=== PATIENT | male | born 1970 | race Caucasian/White ===

== ENCOUNTER → 2021-12-06 16:00 | Outpatient (CLI) | payer BC, SELFPAY ==
[2021-12-06 19:41] LABS: Prostate Specific Ag Screen 6.3 ng/ml (0.0-4.0)
== END ==
PROVIDERS: Visit Provider Family Medicine
DX: Z12.5 Encounter for screening for malignant neoplasm of prostate (principal)
CPT/HCPCS: G0103

== ENCOUNTER → 2022-01-12 15:52 | Outpatient (CLI) | payer BC, SELFPAY ==
[2022-01-14 08:14] LABS: PSA, Free 4.26 ng/mL; Prostate Specific Ag 13.3 ng/mL (0.0-4.0)
== END ==
PROVIDERS: PCP Family Medicine; Visit Provider Urology
DX: R97.20 Elevated prostate specific antigen [PSA] (principal)
CPT/HCPCS: 36415; 84153; 84154

== ENCOUNTER → 2022-01-16 06:58 | Outpatient (CLI) | payer BC, SELFPAY | PROVIDERS: PCP Family Medicine; Visit Provider Internal Medicine Gastroenterology | DX: Z01.812 Encounter for preprocedural laboratory examination (principal); Z20.822 Contact with and (suspected) exposure to COVID-19 | CPT/HCPCS: C9803; U0003; U0005 ==

== ENCOUNTER → 2022-03-06 07:10 | Outpatient (CLI) | payer BC, SELFPAY | PROVIDERS: PCP Family Medicine; Visit Provider Internal Medicine | DX: Z01.812 Encounter for preprocedural laboratory examination (principal); Z20.822 Contact with and (suspected) exposure to COVID-19; Z12.11 Encounter for screening for malignant neoplasm of colon | CPT/HCPCS: C9803; U0003; U0005 ==

== ENCOUNTER 2022-03-08 08:22 | Day surgery (SDC) | payer BC, SELFPAY ==
[2022-03-02 14:10] VITALS: BMI 36.9
[2022-03-08] VITALS (7 sets, daily range): BP systolic 100–142; BP diastolic 68–81; PULSE 63–84; RESP 18; TEMP 36.6–36.8; O2SAT 90–97
--- NOTE | 2022-03-08 09:25 | P.PN_ITS ---
[facility] Anesthesia Checklist - Patient Identification Patient Identification: Arm Band - Structural Data Admitted From: Home Planned Operative Procedure/s: Colonoscopy Consent for Planned Operative Procedure(s) Verified: Yes - NPO Status Verified Time NPO: 04:30 (Prep) - Airway Assessment C-Spine Mobility Assessed: Yes TMJ Mobility Assessed: Yes Dentition: Poor Dentition - Neurological Assessment Level of Consciousness: Awake Hx Seizures: No Numbness or tingling in extremities: No - Anesthesia Plan Anesthesia Risk discussed: Yes Anesthesia Plan: Verified ASA Class: II Anesthesia Type: [facility] History I have reviewed the patient's past medical history: Yes Medical History: Reports:: Hypertension Denies:: Cancer, Diabetes Mellitus Type 1, Diabetes Mellitus Type 2, Internal Pacemaker, MRSA, Seizures *Have you ever received a pneumonia vaccine?: No *Have you received a flu vaccine this season?: No Other Medical History: Reports: Arthritis Anesthesia experience/problems:: None Laterality Cases: Bilateral: Arthroscopy Knee Other Surgeries: Yes: No Previous Surgery, Other. No: Pacemaker Amputation: No Fractures: No - *Social History Last grade of school completed: High school graduate Smoking Status: Never smoker Tobacco Type: smokeless tobacco # Packs/Day (cigarettes): 0 Alcohol Intake: never Substance Use Type: denies use *Occupational Status:: employed Housing: house Household Members: spouse *Travel in the last 8 weeks: None Family Hx:: Cancer, Heart Attack, Stroke
--- NOTE | 2022-03-08 09:59 | HMH.SCOPE ---
- Procedure: Date: 03/08/22 Patient Date of :: 1970 Procedure Performed:: Colonoscopy Indications:: The patient is a 51 year old who is being seen today for surveillance colonoscopy for a history of colon polyps. He relates a history of chronic ulcerative colitis diagnosed in 2009. He has chronic use of mesalamine 4.8 gm daily. He has one bowel movement per day. There is occasional hematochezia. Performing Provider:: Dakota Mahoney MD Referring Provider:: Fransico Post MD Sedation:: See RN records Procedure:: After placing the patient in the left lateral decubitus position, the colonoscopy was gently inserted into the rectum and under direct visualization advanced to the cecum which was identified by transillumination in the right lower quadrant, identification of the ileocecal valve, appendiceal orifice, and cecal strap. Color, texture, mucosa, and anatomy of the colon were carefully examined with the scope. Findings:: Anal canal: normal Rectum: Proctitis. De Leon score 2 characterized by marked erythema, loss of normal vascular pattern, erosions, and friable mucosa Sigmoid colon: Colitis patchy extending to 35 cm. De Leon score 2 characterized by marked erythema, loss of normal vascular pattern, erosions, and friable mucosa Descending colon: normal Splenic flexure: normal Transverse colon: normal Hepatic flexure: normal Ascending colon: normal Cecum: periappendiceal inflammation. biopsies obtained Terminal ileum: could not be intubated Impression: Active ulcerative colitis with proctitis and patchy colitis extending to approximately 35 cm. Appearance is that of De Leon UC score 2 and that of partially treated UC. Recommendations:: Await pathology results Will arrange GI follow up for management of chronic ulcerative colitis Complications:: None Estimated blood obtained (mL): 0
== END 2022-03-08 11:00 | disposition home or self-care (01) ==
PROVIDERS: PCP Family Medicine; Visit Provider Internal Medicine
PROC: 0DJD8ZZ Inspection of Lower Intestinal Tract, Via Natural or Artificial Opening Endoscopic (ICD-10-PCS; CPT 45378; principal; 2022-03-08 09:30)
DX: K51.90 Ulcerative colitis, unspecified, without complications (principal); Z12.11 Encounter for screening for malignant neoplasm of colon; Z86.010 Personal history of colon polyps; I10 Essential (primary) hypertension
CPT/HCPCS: 45378; J2704

== ENCOUNTER → 2022-03-09 16:17 | Outpatient (CLI) | payer BC, SELFPAY ==
[2022-03-09 17:35] LABS: Basophils # 0.1 K/mm3 (0-0.2); Basophils % 0.7 % (0.1-2.0); Eosinophils # 0.3 K/mm3 (0.0-0.4); Eosinophils % 2.5 % (0.1-12.0); Hematocrit 44.1 % (42.0-52.0); Hemoglobin 14.2 g/dL (14.1-18.0); Lymphocytes # 2.3 K/mm3 (0.7-4.5); Mean Corpuscular HGB Conc 32.1 g/dL (31.8-35.4); Mean Corpuscular Hemoglobin 30.3 pg (27.0-31.2); Mean Corpuscular Volume 94.4 fl (80-94); Mean Platelet Volume 7.8 fl (7.4-10.4); Monocytes # 0.6 K/mm3 (0.1-1.0); Monocytes % 5.7 % (1.7-9.3); Neutrophils # 7.7 K/mm3 (1.8-7.8); Neutrophils % 70.3 % (37.0-80.0); Platelet Count 455 K/mm3 (142-424); Red Blood Count 4.67 M/mm3 (4.60-6.20); Red Cell Distribution Width 13.2 % (11.5-17.5); White Blood Count 10.9 K/mm3 (4.8-10.8)
[2022-03-09 18:36] LABS: 25-OH Vitamin D, Total 49.3 ng/mL (30-100)
[2022-03-09 18:57] LABS: Alanine Aminotransferase 33 U/L (12-78); Albumin Level 4.1 g/dl (3.5-5.0); Albumin/Globulin Ratio 1.9 (1.1-1.8); Alkaline Phosphatase 65 U/L (38-126); Anion Gap 12.5 mEq/L (5-15); Aspartate Amino Transferase 27 U/L (17-59); Bilirubin,Total 0.3 mg/dl (0.2-1.3); Blood Urea Nitrogen 11 mg/dl (9-20); Calcium 8.7 mg/dl (8.4-10.2); Carbon Dioxide 25 mmol/L (22.0-30.0); Chloride 103 mmol/L (98-107); Estimated Glomerular Filt Rate 78 ml/min (>60); GFR (African American) 95 ML/MIN (>60); Globulin 2.2 g/dL (1.3-3.2); Glucose 102 mg/dl (74-100); Potassium 4.5 mmoL/L (3.5-5.1); Sodium 136 mmol/L (136-145); Total Protein,Serum 6.3 g/dl (6.3-8.2)
[2022-03-09 19:03] LABS: C-Reactive Protein 46.4 mg/L (0-4); Erythrocyte Sedimentation Rate 11 mm/hr (0-20)
[2022-03-14 15:18] LABS: QuantiFERON-TB Gold Plus Negative (Negative)
[2022-03-25 17:37] LABS: Hep A Ab, IgM Negative; Hepatitis B Surface Antigen Negative; Hepatitis C Antibody <0.1
[2022-03-25 17:38] LABS: Hepatitis B Core Antibody IgM Negative; Hepatitis B Surf Ab Quant 3.1
== END ==
PROVIDERS: PCP Family Medicine; Visit Provider Internal Medicine
DX: K51.90 Ulcerative colitis, unspecified, without complications (principal)
CPT/HCPCS: 36415; 80053; 80074; 82306; 85025; 85651; 86140; 86480; 86706

== ENCOUNTER → 2022-03-10 07:08 | Outpatient (CLI) | payer BC, SELFPAY ==
[2022-03-10 07:14] LABS: Adenovirus F 40/41, stool Not Detected (NotDetected); Astrovirus Not Detected (NotDetected); Campylobacter Not Detected (NotDetected); Clostridium Difficile A/B, PCR Not Detected (NotDetected); Cryptosporidium Not Detected (NotDetected); Cyclospora Cayetanesis Not Detected (NotDetected); Entamoeba histolytica Not Detected (NotDetected); Enteroaggregative E coli Not Detected (NotDetected); Enteropathogenic E coli Not Detected (NotDetected); Enterotoxigenic E coli Not Detected (NotDetected); Giardia lamblia Not Detected (NotDetected); Norovirus Not Detected (NotDetected); Plesimonas Shigalloides, PCR Not Detected (NotDetected); Rotavirus A Not Detected (NotDetected); Salmonella, PCR Not Detected (NotDetected); Sapovirus Not Detected (NotDetected); Shiga-like toxin E coli Not Detected (NotDetected); Shigella Enterovasive E coli Not Detected (NotDetected); Vibrio Cholerae Not Detected (NotDetected); Vibrio, PCR Not Detected (NotDetected); Yersinia Entercolitica, PCR Not Detected (NotDetected)
[2022-03-14 00:12] LABS: Calprotectin, Fecal 456 ug/g (0-120)
== END ==
PROVIDERS: PCP Family Medicine; Visit Provider Internal Medicine
DX: K51.90 Ulcerative colitis, unspecified, without complications (principal)
CPT/HCPCS: 83993; 87507

== ENCOUNTER → 2022-06-01 09:10 | Outpatient (CLI) | payer BC, SELFPAY ==
[2022-06-01 15:07] LABS: Cholesterol 192 mg/dl (140-200); HDL Cholesterol 48 mg/dl (40-60); Triglycerides 75 mg/dl (30-150); VLDL Cholesterol 15 mg/dL (0-40)
[2022-06-01 15:17] LABS: Direct LDL Cholesterol 115.43 mg/dL (100-129)
[2022-06-01 15:42] LABS: Prostate Specific Ag, Diagnost 7.65 ng/ml (0.0-4.0)
== END ==
PROVIDERS: PCP Family Medicine; Visit Provider Family Medicine
DX: R53.83 Other fatigue (principal); R97.20 Elevated prostate specific antigen [PSA]; Z79.899 Other long term (current) drug therapy
CPT/HCPCS: 80061; 84153; 84443

== ENCOUNTER → 2022-06-09 06:20 | Outpatient (CLI) | payer BC, SELFPAY ==
--- NOTE | 2022-06-09 | CA_ITS ---
APPROVED REPORT Exam: Exercise Treadmill Technologist: Qing Pichardo, Ht: 5 ft 9 in Wt: 272 lbs BSA: 2.35 m2 HR: 61 bpm BP: 135/85 mmHg Rhythm: NSR, inferior ST-T abnormalities Medical History Medications: Lisinopril,,,,, Pantoprazole,,,,, Celecoxib,,,,, Stress Test Details Test: Matias HR Resting HR: 67 bpm Max Heart Rate (APMHR): 167.725658 bpm Max HR Achieved: 147 bpm Target HR (85% APMHR): 141.386221 bpm % of APMHR: 88.02 Recovery HR: 128 bpm BP Resting BP: 133/81 mmHg Max BP: 165/90 mmHg Recovery BP: 165.0/90.0 mmHg ECG Resting ECG: NSR, Inferior ST-T abnormalities Clinical Reason for Termination: Dyspnea Leg Pain Exercise duration: 09:00 min Highest Stage Achieved: Exercise capacity: 10.1 METs Stress ECG Conclusion Total exercise 9 minutes. 10.1 METS No CP noted. Pt experinced SOA. Frequent PVCs in recovery. <1.5mm ST segment changes. Negative stress. See myoview images. Test Summary REST . . . . . . . Sitting REST . . . . . . . Standing REST . . . . . . . Standing REST 14:22 0.0 0.0 67 . 133/ 81 . . Stage 1 01:00 10.0 1.7 94 . . . . Stage 1 02:00 10.0 1.7 102 . . . . Stage 1 03:00 10.0 1.7 106 . 142/ 82 . . Stage 2 01:00 12.0 2.5 114 . . . . Stage 2 02:00 12.0 2.5 123 . . . . Stage 2 03:00 12.0 2.5 128 . 159/ 87 . . Stage 3 01:00 14.0 3.4 136 . . . . Stage 3 02:00 14.0 3.4 140 . . . . Stage 3 03:00 14.0 3.4 146 . . . Stop exercise at 09:00 RECOVERY 01:00 0.0 0.0 124 . 165/ 90 . . RECOVERY 02:00 0.0 0.0 83 . 165/ 90 . . RECOVERY 03:00 0.0 0.0 89 . 165/ 90 . . RECOVERY 04:00 0.0 0.0 77 . 165/ 90 . . RECOVERY 05:00 0.0 0.0 80 . 165/ 90 . . RECOVERY 05:15 0.0 0.0 80 . 136/ 84 . . Electronically signed by : Daquan Delcid MD 06/09/2022 13:41:54
--- NOTE | 2022-06-09 06:31 | NM_ITS ---
APPROVED REPORT Exam: Nuclear Stress Test Indication: HTN, TOB USE, FM HX., SOB Patient Location: Outpatient Stress Tech: Qing Pichardo [place] Tech:Marjorie HernandezTRINI RT (R)(N)(M) Ht: 5 ft 11 in Wt: 265 lbs HR: 61 bpm BP: 135/85 mmHg BSA: 2.38 m2 TID: 1.09 BMI: 36.9 History: HTN, TOB USE, FM HX., SOB Procedure: Patient exercised on Matias protocol 9:00 minutes and sec, resting heart rate 61 bpm, resting blood pressure 135/85 mmHg, with exercise maximum heart rate achived was 147 bpm which is 88 % of the maximum predicted heart rate and blood pressure was 165/90 mmHg. Test was stopped due to FATIGUE. Patient denied any complaint of chest pain. Patient has Good exercise capacity, achieved 10.1 METs of workload on treadmill, the blood pressure response to exercise was Adequate. Electrocardiogram Resting electrocardiogram shows sinus rhythm, with exercise there is less than 1.[address] segment depression noted from the baseline EKG. The EKG portion of the exercise Myoview is negative for ischemia. Cardiac Stress and Resting SPECT Images: Cardiac Stress and Resting SPECT images were obtained using technetium 99m Myoview 31.5 mCi stress and 9.93 mCi at rest. Gated SPECT for analysis of segmental wall motion and calculation of the ejection fraction also done. Prone images were also obtained. Cardiac stress and rest SPECT images show uniform myocardial activity without segmental perfusion abnormality, calculated ejection fraction is 57% with no regional wall motion abnormality, right ventricle is normal size and contractility. Conclusion: 1. The EKG portion of the exercise Myoview is negative for ischemia. Patient is good exercise capacity of 10.1 METs of workload on treadmill, the blood pressure response to exercise was adequate, there was no exercise-induced chest discomfort. 2. No scintigraphic evidence of reversible ischemia seen, computer derived ejection fraction 57% with no regional wall motion abnormality, right ventricle is normal size and contractility. 3. Normal exercise Myoview study. Electronically signed by : Daquan Delcid MD 06/09/2022 14:05:01
--- NOTE | 2022-06-09 07:02 | CA_ITS ---
APPROVED REPORT EXAM: Comprehensive 2D, Doppler, and color-flow Echocardiogram Accounts Payable Administrator: Magalys Rizvi CRT Ht: 5 ft 9 in Wt: 272lbs BSA: 2.35 BP: 134/78 mmHg Indications: Shortness of Breath, Hypertension/HDD 2D Dimensions LVOT 2.18 cm (M/F) 1.5-2.5 LA Volume 70.80 mL LA Volume Index 29.40 mL/m2 (M/F) 16-34 M-Mode Dimensions RVDd 3.53 cm (0.9-2.6) LA Diam 4.39 cm (1.9-4.0) LVDd 4.72 cm (3.5-5.7) Ao Diam 4.35 cm (2.0-3.7) LVDs 3.10 cm (3.5-5.7) IVSd 1.23 cm (0.6-1.1) PWd 0.94 cm (0.6-1.1) EF (Teich) 63.30% FS 34.30% EDV (Teich) 103.40 mL ESV (Teich) 37.90 mL LV Diastology E Decel Time 187.00 (160-240 msec) E/A Ratio 1.06 MED E' 5.80 (< 7 cm/sec) MED A' 8.30 cm/s E'/MED E' Ratio 11.38 (>14) LAT E' 11.90 (<10 cm/sec) LAT A' 13.20 cm/s E/LAT E' Ratio 5.55 (>14) Aortic Valve AO Peak GR. 4.70 mmHg Mitral Valve MV A Velocity 62.00 (40-130 cm/s) E/A Ratio 1.06 MV Decel. Time 187.00 (160-240 ms) Pulmonary Valve PV Peak Velocity 169.00 (50-150 cm/s) MD End VMAX 201.00 cm/s Tricuspid Valve TR P. Velocity 212.00 cm/s RAP Estimate 10.00 mmHg RVSP 28.00 mmHg Left Ventricle Atrium is mildly enlarged, left ventricle is normal size mild concentric left ventricular hypertrophy, estimated ejection fraction 55% with no regional wall motion abnormality, grade 1 diastolic dysfunction seen without tissue Doppler evidence of raise left atrial pressure. Right Ventricle Right atrium and right ventricle are mildly enlarged with normal contractility. Aortic Valve Aortic valve is minimally thickened and fibrosed there is no aortic stenosis or aortic insufficiency. Mitral Valve Mitral valve is grossly normal, there is trace mitral regurgitation. Tricuspid Valve Tricuspid valve grossly normal, there is trace tricuspid regurgitation, tricuspid regurgitation jet velocity is inadequate for calculation of the right ventricular systolic pressure. Pulmonic Valve Pulmonic valve is poorly visualized. Great Vessels Aortic root is normal size. Inferior vena cava is poorly visualized. Pericardium No significant pericardial effusion noted. Conclusion 1. Mild biatrial enlargement, normal left ventricular size, mild concentric left ventricular hypertrophy, estimated ejection fraction 55% with no regional wall motion abnormality, grade 1 diastolic dysfunction seen without tissue Doppler evidence of raise left atrial pressure. 2. Mildly enlarged right ventricle with normal contractility. 3. Trace mitral and tricuspid regurgitation. 4. No significant pericardial effusion noted. 5. Inferior vena cava is poorly visualized. Electronically signed by : Daquan Delcid MD 06/09/2022 14:52:02
[2022-06-12 18:08] LABS: Calprotectin, Fecal 160 ug/g (0-120)
== END ==
PROVIDERS: Internal Medicine; PCP Family Medicine; Visit Provider Family Medicine
DX: R06.09 Other forms of dyspnea (principal); R07.9 Chest pain, unspecified
CPT/HCPCS: 78452; 83993; 93017; 93306; A9502

== ENCOUNTER → 2022-06-23 11:10 | Outpatient (CLI) | payer BC, SELFPAY ==
--- NOTE | 2022-06-23 11:47 | XR_ITS ---
FINAL REPORT CLINICAL HISTORY: ULCERATIVE COLITIS FINDINGS: Two views of the chest were obtained. The heart size and pulmonary vascularity are within normal limits. The mediastinum is normal. No acute pulmonary abnormality is identified. There is no pneumothorax. The bony thorax is intact. IMPRESSION: No active cardiopulmonary disease. Reviewed, Interpreted and Dictated by Freddie Dodd III, MD Transcribed by Lynette Osorio Authenticated and [facility]
[2022-06-26 13:34] LABS: QuantiFERON-TB Gold Plus Negative (Negative)
[2022-07-02 23:32] LABS: Hepatitis C Antibody <0.1
[2022-07-02 23:33] LABS: Hep A Ab, IgM NEGATIVE; Hepatitis B Core Antibody IgM NEGATIVE; Hepatitis B Surface Antigen NEGATIVE
== END ==
PROVIDERS: PCP Family Medicine; Visit Provider Internal Medicine
DX: K51.90 Ulcerative colitis, unspecified, without complications (principal)
CPT/HCPCS: 36415; 71046; 80074; 86480

== ENCOUNTER → 2022-11-28 07:07 | Outpatient (CLI) | payer BC, SELFPAY ==
[2022-11-28 07:37] LABS: Basophils # 0.1 K/mm3 (0-0.2); Basophils % 0.7 % (0.1-2.0); Eosinophils # 0.3 K/mm3 (0.0-0.4); Eosinophils % 3.7 % (0.1-12.0); Hematocrit 46.6 % (42.0-52.0); Hemoglobin 15.5 g/dL (14.1-18.0); Lymphocytes # 3.4 K/mm3 (0.7-4.5); Lymphocytes % 41.4 % (10-50); Mean Corpuscular HGB Conc 33.4 g/dL (31.8-35.4); Mean Corpuscular Hemoglobin 29.8 pg (27.0-31.2); Mean Corpuscular Volume 89.4 fl (80-94); Mean Platelet Volume 7.1 fl (7.4-10.4); Monocytes # 0.4 K/mm3 (0.1-1.0); Monocytes % 5.2 % (1.7-9.3); Neutrophils % 49.1 % (37.0-80.0); Platelet Count 453 K/mm3 (142-424); Red Blood Count 5.22 M/mm3 (4.60-6.20); Red Cell Distribution Width 13.1 % (11.5-17.5); White Blood Count 8.1 K/mm3 (4.8-10.8)
[2022-11-28 08:14] LABS: Chloride 100 mmol/L (98-107); Sodium 138 mmol/L (136-145)
[2022-11-28 08:17] LABS: Alanine Aminotransferase 25 U/L (12-78); Albumin Level 4.1 g/dl (3.5-5.0); Albumin/Globulin Ratio 2.2 (1.1-1.8); Alkaline Phosphatase 46 U/L (38-126); Aspartate Amino Transferase 23 U/L (17-59); Bilirubin,Total 0.5 mg/dl (0.2-1.3); Blood Urea Nitrogen 15 mg/dl (9-20); Carbon Dioxide 27 mmol/L (22.0-30.0); Estimated Glomerular Filt Rate 101 ml/min (>60); GFR (African American) 122 ML/MIN (>60); Globulin 1.9 g/dL (1.3-3.2)
[2022-11-28 08:18] LABS: Calcium 8.9 mg/dl (8.4-10.2); Glucose 88 mg/dl (74-100)
[2022-11-28 08:23] LABS: C-Reactive Protein 2.6 mg/L (0-4)
[2022-11-28 08:25] LABS: Erythrocyte Sedimentation Rate 2 mm/hr (0-20)
[2022-11-28 08:37] LABS: 25-OH Vitamin D, Total 31.9 ng/mL (30-100)
[2022-12-04 18:05] LABS: Calprotectin, Fecal 31 ug/g (0-120)
== END ==
PROVIDERS: PCP Family Medicine; Visit Provider Internal Medicine
DX: K51.90 Ulcerative colitis, unspecified, without complications (principal); E66.9 Obesity, unspecified; Z68.41 Body mass index [BMI] 40.0-44.9, adult
CPT/HCPCS: 36415; 80053; 82306; 83993; 85025; 85651; 86140

== ENCOUNTER → 2023-03-14 21:44 | Outpatient (CLI) | payer BC, SELFPAY ==
[2023-03-14 18:56] LABS: Basophils % 0.3 % (0.1-2.0); Eosinophils # 0.1 K/mm3 (0.0-0.4); Eosinophils % 1.7 % (0.1-12.0); Hematocrit 48.9 % (42.0-52.0); Hemoglobin 16.1 g/dL (14.1-18.0); Lymphocytes % 33.8 % (10-50); Mean Corpuscular HGB Conc 32.8 g/dL (31.8-35.4); Mean Corpuscular Hemoglobin 30.4 pg (27.0-31.2); Mean Corpuscular Volume 92.7 fl (80-94); Mean Platelet Volume 7.5 fl (7.4-10.4); Monocytes # 0.5 K/mm3 (0.1-1.0); Monocytes % 5.5 % (1.7-9.3); Neutrophils # 5.1 K/mm3 (1.8-7.8); Neutrophils % 58.6 % (37.0-80.0); Platelet Count 439 K/mm3 (142-424); Red Blood Count 5.28 M/mm3 (4.60-6.20); White Blood Count 8.8 K/mm3 (4.8-10.8)
[2023-03-14 19:04] LABS: Alanine Aminotransferase 22 U/L (12-78); Albumin Level 4.6 g/dl (3.5-5.0); Albumin/Globulin Ratio 1.9 (1.1-1.8); Alkaline Phosphatase 51 U/L (38-126); Anion Gap 13.2 mEq/L (5-15); Aspartate Amino Transferase 26 U/L (17-59); Bilirubin,Total 0.5 mg/dl (0.2-1.3); Blood Urea Nitrogen 15 mg/dl (9-20); Calcium 9.5 mg/dl (8.4-10.2); Carbon Dioxide 27 mmol/L (22.0-30.0); Chloride 103 mmol/L (98-107); Chol/HDL Ratio 3.4 (1-3.5); Cholesterol 208 mg/dl (140-200); Estimated Glomerular Filt Rate 88 ml/min (>60); GFR (African American) 106 ML/MIN (>60); Globulin 2.4 g/dL (1.3-3.2); Glucose 78 mg/dl (74-100); HDL Cholesterol 62 mg/dl (40-60); Potassium 4.2 mmoL/L (3.5-5.1); Sodium 139 mmol/L (136-145); Triglycerides 196 mg/dl (30-150); VLDL Cholesterol 39 mg/dL (0-40)
[2023-03-14 19:15] LABS: Direct LDL Cholesterol 97.62 mg/dL (100-129)
[2023-03-14 19:34] LABS: Prostate Specific Ag Screen 9.2 ng/ml (0.0-4.0)
== END ==
PROVIDERS: PCP Family Medicine; Visit Provider Family Medicine
DX: L98.9 Disorder of the skin and subcutaneous tissue, unspecified (principal); Z79.899 Other long term (current) drug therapy; Z12.5 Encounter for screening for malignant neoplasm of prostate
CPT/HCPCS: 80053; 80061; 85025; G0103

== ENCOUNTER → 2023-05-28 08:17 | Outpatient (CLI) | payer BC, SELFPAY ==
[2023-05-28 21:33] LABS: Basophils % 0.3 % (0.1-2.0); Eosinophils # 0.2 K/mm3 (0.0-0.4); Eosinophils % 1.7 % (0.1-12.0); Hematocrit 44.5 % (42.0-52.0); Hemoglobin 15.8 g/dL (14.1-18.0); Lymphocytes # 3.2 K/mm3 (0.7-4.5); Lymphocytes % 32.6 % (10-50); Mean Corpuscular HGB Conc 35.4 g/dL (31.8-35.4); Mean Corpuscular Hemoglobin 32.3 pg (27.0-31.2); Mean Corpuscular Volume 91.1 fl (80-94); Mean Platelet Volume 8.1 fl (7.4-10.4); Monocytes # 0.5 K/mm3 (0.1-1.0); Monocytes % 5.6 % (1.7-9.3); Neutrophils # 5.8 K/mm3 (1.8-7.8); Neutrophils % 59.7 % (37.0-80.0); Platelet Count 487 K/mm3 (142-424); Red Blood Count 4.88 M/mm3 (4.60-6.20); Red Cell Distribution Width 12.9 % (11.5-17.5); White Blood Count 9.7 K/mm3 (4.8-10.8)
[2023-05-29 15:04] LABS: Prostate Specific Ag, Diagnost 9.77 ng/ml (0.0-4.0)
== END ==
PROVIDERS: PCP Family Medicine; Visit Provider Family Medicine
DX: R21 Rash and other nonspecific skin eruption (principal); Z12.5 Encounter for screening for malignant neoplasm of prostate
CPT/HCPCS: 84153; 85025

== ENCOUNTER 2024-12-31 09:10 | Outpatient (CLI) | payer OTHER, SELFPAY ==
[2024-12-31 18:47] LABS: Basophils % 0.5 % (0.1-2.0); Eosinophils # 0.2 Kmm3 (0.0-0.4); Eosinophils % 2.8 % (0.1-12.0); Hematocrit 49.3 % (42.0-52.0); Hemoglobin 16.2 g/dL (14.1-18.0); Immature Granulocytes # 0.02 10^3uL; Immature Granulocytes % 0.3 %; Lymphocytes # 1.9 K/mm3 (0.7-4.5); Lymphocytes % 32.3 % (10-50); Mean Corpuscular HGB Conc 32.9 g/dL (31.8-35.4); Mean Corpuscular Hemoglobin 30.1 pg (27.0-31.2); Mean Corpuscular Volume 91.6 fl (80-94); Mean Platelet Volume 9.2 fl (7.4-10.4); Monocytes # 0.4 K/mm3 (0.1-1.0); Monocytes % 6.8 % (1.7-9.3); Neutrophils # 3.4 K/mm3 (1.8-7.8); Neutrophils % 57.3 % (37.0-80.0); Nucleated Red Blood Cells # 0 10^3/uL; Nucleated Red Blood Cells % 0 %; Platelet Count 390 K/mm3 (142-424); Red Blood Count 5.38 M/mm3 (4.60-6.20); Red Cell Distribution Width 12.5 % (11.5-17.5); Red Cell Distribution Width-SD 41.6 fL
[2024-12-31 19:51] LABS: Alanine Aminotransferase 25 U/L (12-78); Albumin Level 4.5 g/dl (3.5-5.0); Alkaline Phosphatase 47 U/L (38-126); Anion Gap 13.6 mEq/L (5-15); Aspartate Amino Transferase 25 U/L (17-59); Bilirubin,Total 0.9 mg/dl (0.2-1.3); Blood Urea Nitrogen 21 mg/dl (9-20); Calcium 9.6 mg/dl (8.4-10.2); Carbon Dioxide 25 mmol/L (22.0-30.0); Chloride 105 mmol/L (98-107); Chol/HDL Ratio 4.2 (1-3.5); Cholesterol 220 mg/dl (140-200); Estimated Glomerular Filt Rate 87 ml/min (>60); GFR (African American) 106 ML/MIN (>60); Globulin 2.2 g/dL (1.3-3.2); Glucose 88 mg/dl (74-100); HDL Cholesterol 53 mg/dl (40-60); Potassium 4.6 mmoL/L (3.5-5.1); Sodium 139 mmol/L (136-145); Total Protein,Serum 6.7 g/dl (6.3-8.2); Triglycerides 115 mg/dl (30-150); VLDL Cholesterol 23 mg/dL (0-40)
[2024-12-31 20:03] LABS: Direct LDL Cholesterol 121.13 mg/dL (100-129)
[2024-12-31 20:23] LABS: Prostate Specific Ag Screen 11.6 ng/ml (0.0-4.0); Thyroid Stimulating Hormone 2.31 uIU/mL (0.465-4.68)
[2024-12-31 20:28] LABS: HIV Combo NEGATIVE (Negative)
[2024-12-31 21:51] LABS: Hepatitis C Ab Qual. W/ RFX NEGATIVE (Negative)
[2025-01-02 05:13] LABS: Hepatitis B Surface Antigen Negative (Negative)
== END 2024-12-31 23:59 | disposition home or self-care (01) ==
LOC: LAB.DROPOF 01-01 12:38
PROVIDERS: PCP Family Medicine; Visit Provider Family Medicine
DX: Z00.00 Encounter for general adult medical examination without abnormal findings (principal); K51.90 Ulcerative colitis, unspecified, without complications; R97.20 Elevated prostate specific antigen [PSA]
CPT/HCPCS: 80053; 80061; 84443; 85025; 86803; 87340; 87389; G0103